=== PATIENT | male | born 1990 | race Caucasian/White ===

== ENCOUNTER 2019-12-05 10:50 | Emergency (ER) | payer OTHER ==
[2019-12-05 11:19] VITALS: BP 113/54
--- NOTE | 2019-12-05 11:42 | UC ---
Cardiac HPI - HPI Summary HPI Summary: 29 yo male with 5-6 day hx of intermittent cough/left sided CP and mild dyspnea He smokes 2 ppd no f/c cough occasionally productive no diaphores no n/v/d no known COVID19 exposure - History of Current Complaint Chief Complaint: UCChestPain Stated Complaint: LEFT SIDE CHEST/RIB PAIN SOB Time Seen by Provider: 12/05/19 10:53 Hx Obtained From: Patient Onset/Duration: Sudden Onset, Gradual Onset Initial Severity: Mild Current Severity: Mild Pain Intensity: 3 Chest Pain Location: Left Anterior Character: Sharp/Stabbing Aggravating Factor(s): Movement, Deep Breaths Alleviating Factor(s): Spontaneous Resolution Associated Signs & Symptoms: Positive: Chest Pain, SOB, Cough - Allergy/Home Medications Allergies/Adverse Reactions: Allergies Allergy/AdvReac Type Severity Reaction Status Date / Time No Known Allergies Allergy Verified 12/05/19 11:19 Home Medications: Home Medications Amoxicillin PO (*) [Amoxicillin 875 MG (*)] 875 mg PO BID #14 tab 12/05/19 [Rx] PMH/Surg Hx/FS Hx/Imm Hx Previously Healthy: Yes - Surgical History Surgical History: None - Family History Known Family History: Positive: Hypertension - Social History Alcohol Use: Occasionally Substance Use Type: Marijuana Substance Use Comment - Amount & Last Used: last use yesterday Smoking Status (MU): Heavy Every Day Tobacco Smoker Type: Cigarettes Amount Used/How Often: 1.5 packs per day Length of Time of Smoking/Using Tobacco: age 7 Cessation Counseling: Patient Advised to Stop Review of Systems All Other Systems Reviewed And Are Negative: Yes Constitutional: Positive: Negative Skin: Positive: Negative Eyes: Positive: Negative ENT: Positive: Negative Respiratory: Positive: Shortness Of Breath, Cough Cardiovascular: Positive: Chest Pain Gastrointestinal: Positive: Negative Genitourinary: Positive: Negative Motor: Positive: Negative Neurovascular: Positive: Negative Musculoskeletal: Positive: Negative Neurological/Mental Status: Positive: Negative Physical Exam Triage Information Reviewed: Yes Appearance: Well-Appearing, No Pain Distress, Well-Nourished Vital Signs: Initial Vital Signs Temp 97.6 F 12/05/19 11:15 Pulse 77 12/05/19 11:15 Resp 21 12/05/19 11:15 BP 113/54 12/05/19 11:15 Pulse Ox 97 12/05/19 11:15 Vital Signs Reviewed: Yes Eyes: Positive: Conjunctiva Clear ENT: Positive: Hearing grossly normal. Negative: Nasal congestion, Nasal drainage, Trismus, Muffled voice, Hoarse voice Neck: Positive: Supple, Nontender, No Lymphadenopathy Respiratory: Positive: No respiratory distress, No accessory muscle use, Wheezing - especially with forced expiration Cardiovascular: Positive: RRR, No Murmur Musculoskeletal: Positive: ROM Intact, No Edema Neurological: Positive: Alert Psychological Exam: Normal Skin Exam: Normal - Clinical Impression Provider Diagnosis: Acute bronchitis, Smoker, Advice given about COVID-19 virus infection Discharge ED - Sign-Out/Discharge Documenting (check all that apply): Patient Departure All imaging exams completed and their final reports reviewed: Yes - Discharge Plan Condition: Stable Disposition: HOME Prescriptions: Amoxicillin PO (*) [Amoxicillin 875 MG (*)] 875 mg PO BID #14 tab Patient Education Materials: Acute Bronchitis (ED), How to Use a Metered-Dose Inhaler and a Spacer (ED) Forms: COVID-19 Tested & Isolation Referrals: [facility] [Outside] Additional Instructions: Your COVID19 test is pending See info on self isolation You need to STOP SMOKING recheck for new or worsening symptoms your CXR was normal as was your EKG - Billing Disposition and Condition Condition: STABLE Disposition: Home
[2019-12-05] MEDS ORDERED: Albuterol HFA INHALER* 8 gm MDI INH ONE (12:32)
== END 2019-12-05 12:47 | disposition home or self-care (01) ==
LOC: UCCORT 10:50
DX: J20.9 Acute bronchitis, unspecified (principal); Z20.828 Contact with and (suspected) exposure to other viral communicable diseases; F17.210 Nicotine dependence, cigarettes, uncomplicated
CPT/HCPCS: 71046; 87635; 99202; A9270-GY; G0463